=== PATIENT | female | born 1995 | race Caucasian/White ===

== ENCOUNTER 2017-12-30 08:45 | Inpatient (IN) ==
--- NOTE | 2017-12-30 11:24 | OB/GYN History & Physical ---
Date of Encounter: 12/30/17 Time of Encounter: 11:14 Assessment and Plan (1) 38 weeks gestation of Current visit: Yes Status: Acute Update: case discussed with both Dr Sanford and Dr Landry. Decision to proceed with IOL prior to midnight made. Admit for Continuous monitoring CBC Pain control If dilates past 6cm, will augment labor If does not dilate past 6cm prior to midnight and fetus remains reactive, will induce at midnight Anticipate vaginal delivery; discussed potential for emergency r/t history of partial abruption. POC per consult with Dr Sanford (2) Vaginal bleeding during Current visit: Yes Status: Acute (3) History of placental abruption Current visit: Yes Status: Acute History of Present Illness Chief complaint: Vaginal bleeding HPI: Ms. Rubin is a 22 year old at 38 weeks and 6 days gestation that arrives to labor and delivery triage with c/o maria d vaginal bleeding that began this AM and contractions. She sees Dr Sanford for her care. She denies any problems with this , but upon her review, she has had a resolved partial abruption in the second trimester. She states positive movement. She denies headache, vision changes, epigastric pain, and LOF. Labs: waiting to receive labs from Dr Sanford's office. Past Med Surg Social Fam HX - Past Medical History Medical history: no medical history Additional medical history: anxiety Psychiatric history: anxiety - Past Surgical History Surgical History: no surgical history - Social History Smoking Status: Current every day smoker Packs per day: less than 1 pack Smokeless Tobacco Status: No Alcohol use: none Drug use: none - Family History Mother Hx Family Cardiac Disorders: Yes Hx Family GI Disorders: Yes Obstetrical History - Pregnancies : 1 Para: 0 Term: 0 : 0 Ab's: 0 Livin Medications and Allergies Albuterol Sulfate [Albuterol Inhaler] 2 puff IH Q6HR PRN #1 hfa.aer.ad 01/26/15 [Rx] Azithromycin [Zithromax] 250 mg PO Q24H #5 tablet 01/26/15 [Rx] Permethrin Cream Rinse [Nix] 60 ml TP ONCE #2 liquid 10/01/16 [Rx] Doxylamine/Pyridoxine HCl [Evie Bowman 10-10 mg Tablet] 1 each PO DAILY [History] Ferrous Sulfate [Iron] 325 mg PO DAILY 12/30/17 [History] Tablet 80 mg DAILY 12/30/17 [History] 3 Allergy/AdvReac Type Severity Reaction Status Date / Time No Known Allergies Allergy Verified 01/26/15 20:30 Review of System OB All systems PM: reviewed and no additional remarkable complaints except as stated Exam - Constitutional Constitutional: well developed, well nourished, no acute distress, average body habitus - HEENT HEENT: Normocephaly, Mucus Membranes Moist - Neck Neck exam: full ROM - Lungs Respiratory exam: CTAB - Cardiovascular Cardiovascular exam: RRR, +S1, +S2 - Abdomen Abdomen: Present: bowel sounds normal, gravid, non tender - Extremities Extremities exam: calf tenderness, normal capillary refill, normal inspection, radial pulses palpable and symmetrical Deep Tendon Reflex Grade: 2+ Normal - Vulva Vulva: bilateral: normal - Vagina Vagina: Present: normal moisture - Cervix Dilation: 3 Effacement: 100 Station: 0 Results All other labs normal. - VTE Reasons for not Prescribing Prophylaxis: Treatment not Indicated - Low risk for VTE
[2017-12-30] MEDS ORDERED: *HR* Nalbuphine 10 MG/ML AMPUL IVP PRN (12:56)
[2017-12-30] MEDS ORDERED: Ondansetron 4 MG/2 ML VIAL IVP PRN (13:25)
[2017-12-30] MEDS ORDERED: Metoclopramide 10 MG/2 ML VIAL IVP PRN (13:25)
[2017-12-30] MEDS ORDERED: Naloxone 0.4 MG/ML INJ IVP PRN (13:25)
[2017-12-30] MEDS ORDERED: Famotidine 20 MG/2 ML VIAL IVP PRN (13:25)
[2017-12-30] MEDS ORDERED: Ringers Solution, Lactated 1,000 ML IVC SCH (13:30)
[2017-12-30] MEDS ORDERED: Oxytocin 20 units/ LR 1000 mL 20 UNIT/1,000 ML BAG IVC SCH ×2 (13:30→20:10)
[2017-12-30] MEDS ORDERED: Ringers Solution, Lactated 1,000 ML ONE (13:33)
[2017-12-30 14:27] LABS: Basophils # 0.1 K/mcL (0.0-0.2); Basophils % 0.4 %; Eosinophils # 0.1 K/mcL (0.0-0.6); Eosinophils % 0.7 %; Hematocrit 36.1 % (35.3-44.9); Hemoglobin 12.6 g/dL (11.5-15.4); Immature Granulocytes % 1.3 % (0-4); Lymphocytes # 1.8 K/mcL (0.6-4.6); Lymphocytes % 13.2 %; Mean Corpuscular HGB Conc 34.9 g/dL (31.6-35.5); Mean Corpuscular Hemoglobin 32.8 pg (28.0-33.3); Mean Platelet Volume 10.6 fL (9.4-12.4); Monocytes # 0.9 K/mcL (0.0-1.3); Monocytes % 6.2 %; Neutrophils # 10.8 K/mcL (1.6-8.9); Platelet Count 159 K/mcL (140-400); Red Blood Count 3.84 M/mcL (3.82-4.97); Red Cell Distribution Width 14.2 % (11.5-14.5); Segmented Neutrophils % 78.2 %
[2017-12-30] MEDS ORDERED: *HR* FentaNYL (PF) 100 MCG/2 ML VIAL EP ONE (14:31)
[2017-12-30] MEDS ORDERED: Bupivacaine-MPF 0.25% 10 ML VIAL EP ONE (14:31)
--- NOTE | 2017-12-30 14:34 | Anesthesia Evaluation PreOp ---
Date of Encounter: 12/30/17 Time of Encounter: 14:09 - Past History Planned Operation: labor epidural Cardiac History: Denies any Significant Hx Pulmonary History: Smoker (1/2 ppd. Denies asthma, lung disease.) WARP STARTER History: Denies Any Significant HX Other Medical History: Denies Any Significant HX Anesthesia History: No Prior Anesthetic Complications, Past Anesthesia (ORIF of leg fracture, wisdom teeth extracted. No problems with GA, no FHAP.) : Yes Alcohol Use: none Drug use: none Medications and Allergies Albuterol Sulfate [Albuterol Inhaler] 2 puff IH Q6HR PRN #1 hfa.aer.ad 01/26/15 [Rx] Azithromycin [Zithromax] 250 mg PO Q24H #5 tablet 01/26/15 [Rx] Permethrin Cream Rinse [Nix] 60 ml TP ONCE #2 liquid 10/01/16 [Rx] Doxylamine/Pyridoxine HCl [Diclegis Dr 10-10 mg Tablet] 1 each PO DAILY [History] Ferrous Sulfate [Iron] 325 mg PO DAILY 12/30/17 [History] Tablet 80 mg DAILY 12/30/17 [History] 3 Allergy/AdvReac Type Severity Reaction Status Date / Time No Known Allergies Allergy Verified 01/26/15 20:30 - Meds/Allergy Pre-op Review Medications Reviewed: Yes Allergies Reviewed: Yes Beta Blockers on Current Med List: No Anesthesia Results - Labs 12/30/17 10:46 Anesthesia Exam Height: 1.63m Weight: 67kg NPO (# of Hours): >8 Pain Scale: 6 Pain Scale Used: Numeric (1 - 10) - HEENT Pupil (Motor): Pupils equal, EOMI Mallampati: II Teeth: Normal Oral Opening: Greater than 3 - WARP STARTER LOC: Oriented WARP STARTER Motor: Normal RUE, Normal LUE, Normal RLE, Normal LLE, Normal Face WARP STARTER Sensory: Normal: RUE, LUE, RLE, LLE, Face - Cardiac Rhythm: Regular - Pulmonary Breath Sounds: bilateral Clear Respiratory Effort: Symmetrical Anesthesia Assess/Plan ASA Score: 2 Modified Marion Scale for Level of Consciousness: Cooperative, oriented, and tranquil Anesthetic Plan: Regional Monitoring Plan: Standard Monitors
[2017-12-30] MEDS ORDERED: Lidocaine -MPF 2% 5 ML VIAL ONE (14:37)
[2017-12-30] MEDS ORDERED: Epidural Premix (fent/bupiv) 110 ML EP ONE (14:39)
[2017-12-30] MEDS ORDERED: Epidural Premix (fent/bupiv) 110 ML EP SCH (14:45)
--- NOTE | 2017-12-30 15:06 | OB Labor Progress Note ---
Date of Encounter: 12/30/17 Time of Encounter: 15:04 Labor Progress Note - Subjective Subjective: 22 yo female 38.6 weeks presented to L&D in early labor. Now progressing on her own. Last SVE 7100/0. Getting epidural now. FHR 130s with accels. - Cervix Cervix: 100/0 - Heart Tones Heart Tones: 130s with accels - Plan Plan: expectant management.
--- NOTE | 2017-12-30 15:10 | Anesthesia Procedures ---
Date of Encounter: 12/30/17 Time of Encounter: 14:39 Procedures: Anesthesia - Epidural/Spinal Patient ID/Chart reviewed: Yes Patient examined: Yes OB Eval: Gestational age: 38 OB Eval: : 1 OB Eval: Hx Para: 0 OB Eval: Dilated at (cm): 7 OB Eval: Contractions: Non-stressed pattern Consent Obtained: Yes Supplemental Oxygen: None/Room Air Site Prep: Aseptic Technique, Sterile prep and drape, Povidone-Iodine 1% Patient position: upright Local Anesthetic: Lidocaine 1% Amount of Local Anesthetic used: 3 Touhy Needle Gauge: 18 Touhy Needle Depth (cm): 6 Catheter Depth at Skin (cm): 18 Test Dose (1.5% Lido + Epi): Volume given (mls): 3 Test Dose Result: Negative Loading Dose: 0.25% Marcaine (mls): 8 Loading Dose: Fentanyl (mcg): 100 Loading Dose Administered: Thru Catheter Infusion Med: 0.125% Bupivacaine w/ 2 mcg/ml Fentanyl Infusion Rate (mls/hr): [address]: Tegaderm, Tape Interspace Used: L3-L4 Loss of Resistance (CHENTE): Yes Blood: No CSF: No Paresthesia: No Vitals + FHT's: 3 Vital Signs Time 1439 1453 1455 1500 1505 BP 159/93 144/83 138/73 138/85 137/82 Pulse 110 98 77 84 89 FHTs 120 120 120 120 120
[2017-12-30] MEDS ORDERED: Ibuprofen 600 MG TABLET PO ONE (16:33)
--- NOTE | 2017-12-30 16:35 | OB/GYN Procedure Note ---
Delivery - Delivery Date: 12/30/17 Provider: Keith Sanford Intrapartum events: none, precipitous labor- <3hr Delivery induction: none Delivery monitor: external FHT, external uterine Anesthesia: epidural Quantitated Blood Loss: 300 - Infant (s) A Infant Delivery Date: 12/30/17 Delivery Time: 16:15 Presentation: vertex Position: OP Route of delivery: Gender: Female Viability: Viable Pounds: 7 Ounces: 2 Weight Gram: 3230 kg at 1 minute: 8 at 5 mins: 9 Shoulder Dystocia: not encountered Placenta: spontaneous Cord: nuchal cord, delivered through nuchal - Repair Episiotomy: none Laceration Description: Perineal - 1st Degree - Complications Delivery complications: none Delivery comments: Patient progressed rapidly to complete and pushing. She had a spontaneous vaginal delivery of a female infant over an intact perineum. 's head was in the perineum easily in the occiput posterior presentation. There was a cord around the neck 1 which was delivered through. cried immediately upon delivery. The was unwrapped and placed on mother's abdomen. Nursing attentive to at this point. Baby crying briskly. After 60 seconds cord was clamped and cut. Cord blood was obtained. Placenta was delivered spontaneously and intact. There are no cervical, vaginal, periurethral lacerations noted. There was a first-degree perineal laceration which 2 interrupted stitches were placed. Patient delivered a female weight 7 lbs. 2 oz. with Apgars 81 minute and 9 at 5 minutes estimated blood loss 300 mL. - Disposition Mom disposition: stable in LDR Staley disposition: stable in LDR
[2017-12-30] MEDS ORDERED: Ibuprofen 600 MG TABLET PO PRN (20:10)
[2017-12-30] MEDS ORDERED: Acetaminophen 325 MG TABLET PO PRN (20:10)
[2017-12-30] MEDS ORDERED: Measles/Mumps/Rubella Vacc 0.5 ML VIAL SQ PRN (20:10)
[2017-12-31 05:49] LABS: Basophils % 0.2 %; Eosinophils # 0.1 K/mcL (0.0-0.6); Eosinophils % 0.8 %; Hematocrit 34.3 % (35.3-44.9); Hemoglobin 11.7 g/dL (11.5-15.4); Lymphocytes # 2.6 K/mcL (0.6-4.6); Mean Corpuscular HGB Conc 34.1 g/dL (31.6-35.5); Mean Corpuscular Hemoglobin 32.4 pg (28.0-33.3); Mean Platelet Volume 10.5 fL (9.4-12.4); Monocytes # 1.3 K/mcL (0.0-1.3); Monocytes % 7.6 %; Neutrophils # 13.1 K/mcL (1.6-8.9); Platelet Count 159 K/mcL (140-400); Red Blood Count 3.61 M/mcL (3.82-4.97); Red Cell Distribution Width 14.1 % (11.5-14.5); Segmented Neutrophils % 75.4 %
[2017-12-31] MEDS ORDERED: Prenatal Vit/FA 1 EACH TABLET PO SCH (09:00)
[2017-12-31 09:19] VITALS: BP 114/76
--- NOTE | 2017-12-31 09:49 | OB/GYN Progress Note ---
Date of Encounter: 12/31/17 Time of Encounter: 09:47 Subjective - Subjective Principal diagnosis: s/p vaginal delivery Interval history: s/p uncomplicated . Mother and baby doing well. Wishes to go home. Patient reports: appetite normal, pain well controlled, ambulating normally : doing well Objective - Latest Vital Signs Latest vital signs: Vital Signs Temp Pulse Pulse Resp BP Pulse Ox 12/31/17 09:18 98.5 F 100 14 114/76 98 12/31/17 08:39 16 12/31/17 05:28 98.4 F 85 16 123/71 99 12/30/17 19:50 98.5 F 77 77 16 120/69 100 12/30/17 18:50 98.8 F 92 16 136/79 99 Intake and Output 12/30/17 12/31/17 12/31/17 23:59 07:59 15:59 Intake Total 810 / 810 750 / 750 Output Total 2350 / 2350 900 / 900 Balance -1540 / -1540 -150 / -150 Intake: Oral 410 / 410 750 / 750 Other 400 / 400 Output: Urine 2350 / 2350 900 / 900 Other: Meal Dinner Percent of Meal Consumed 50% Weight 65.045 kg Patient Weight 12/31/17 23:59 Weight 65.045 kg - Labs Labs: Laboratory Results - last 24 hr 12/30/17 12/31/17 10:46 05:23 WBC 13.8 H 17.3 H RBC 3.84 3.61 L Hgb 12.6 11.7 Hct 36.1 34.3 L MCV 94.0 95.0 MCH 32.8 32.4 MCHC 34.9 34.1 RDW 14.2 14.1 Plt Count 159 159 MPV 10.6 10.5 Immature Gran % 1.3 1.0 Seg Neutrophils % 78.2 75.4 Lymphocytes % 13.2 15.0 Monocytes % 6.2 7.6 Eosinophils % 0.7 0.8 Basophils % 0.4 0.2 Neutrophils # 10.8 H 13.1 H Lymphocytes # 1.8 2.6 Monocytes # 0.9 1.3 Eosinophils # 0.1 0.1 Basophils # 0.1 0.0
--- NOTE | 2017-12-31 09:51 | Discharge Summary ---
Date of Encounter: 12/31/17 Time of Encounter: 09:51 - Discharge Diagnosis (1) 38 weeks gestation of Priority: Secondary Status: Acute (2) History of placental abruption Priority: Secondary Status: Acute (3) (spontaneous vaginal delivery) Priority: Primary Status: Acute (4) Direct occiput posterior presentation of fetus Priority: Secondary Status: Acute Qualifiers: Fetus number: single or unspecified fetus Qualified Code(s): O64.0XX0 - Obstructed labor due to incomplete rotation of head, not applicable or unspecified - Discharge Medications Home Medications: Albuterol Sulfate [Albuterol Inhaler] 2 puff IH Q6HR PRN #1 hfa.aer.ad 01/26/15 [Rx] Azithromycin [Zithromax] 250 mg PO Q24H #5 tablet 01/26/15 [Rx] Permethrin Cream Rinse [Nix] 60 ml TP ONCE #2 liquid 10/01/16 [Rx] Doxylamine/Pyridoxine HCl [Diclegis Dr 10-10 mg Tablet] 1 each PO DAILY [History] Ferrous Sulfate [Iron] 325 mg PO DAILY 12/30/17 [History] Tablet 80 mg DAILY 12/30/17 [History] Allergies/Adverse Reactions: 3 Allergy/AdvReac Type Severity Reaction Status Date / Time No Known Allergies Allergy Verified 01/26/15 20:30 Data Procedures and tests throughout hospitalization: Laboratory Tests 12/30/17 12/31/17 10:46 05:23 WBC 13.8 H 17.3 H RBC 3.84 3.61 L Hgb 12.6 11.7 Hct 36.1 34.3 L MCV 94.0 95.0 MCH 32.8 32.4 MCHC 34.9 34.1 RDW 14.2 14.1 Plt Count 159 159 MPV 10.6 10.5 Immature Gran % 1.3 1.0 Seg Neutrophils % 78.2 75.4 Lymphocytes % 13.2 15.0 Monocytes % 6.2 7.6 Eosinophils % 0.7 0.8 Basophils % 0.4 0.2 Neutrophils # 10.8 H 13.1 H Lymphocytes # 1.8 2.6 Monocytes # 0.9 1.3 Eosinophils # 0.1 0.1 Basophils # 0.1 0.0 Labs on day of discharge: Labs from last 24 hours 12/31/17 12/30/17 05:23 10:46 WBC 17.3 H 13.8 H RBC 3.61 L 3.84 Hgb 11.7 12.6 Hct 34.3 L 36.1 MCV 95.0 94.0 MCH 32.4 32.8 MCHC 34.1 34.9 RDW 14.1 14.2 Plt Count 159 159 MPV 10.5 10.6 Immature Gran % 1.0 1.3 Seg Neutrophils % 75.4 78.2 Lymphocytes % 15.0 13.2 Monocytes % 7.6 6.2 Eosinophils % 0.8 0.7 Basophils % 0.2 0.4 Neutrophils # 13.1 H 10.8 H Lymphocytes # 2.6 1.8 Monocytes # 1.3 0.9 Eosinophils # 0.1 0.1 Basophils # 0.0 0.1 Date of admission: 12/30/17 13:25 Primary care physician: PCP NONE Consults: 12/30/17 20:10 Consult to Station Supervisor [CONS] Routine Comment: Vaginal delivery, consult needed Discharging clinician: Keith Sanford Anticipated date of discharge: 12/31/17 - Patient Status Disposition: Home, Self-Care Condition: Good Functional capacity at discharge: independent ambulation Overall status at discharge: patient is back to baseline - Discharge Instructions Follow Up With: NONE,PCP [Primary Care Provider] - - Diet and Activity Activity: resume usual activities as tolerated Diet: advance to your usual diet Hospital Course G[facility] Time Attestation: Total time spent providing and/or coordinating discharge services: Exam - Constitutional Vitals: Temp Pulse Resp BP Pulse Ox 98.5 F 100 14 114/76 98 12/31/17 09:18 12/31/17 09:18 12/31/17 09:18 12/31/17 09:18 12/31/17 09:18 General appearance IM: A&O X 3 - Respiratory Respiratory exam: Present: CTAB - Cardiovascular Cardiovascular exam IM: Present: RRR - GI/Abdominal GI/Abdominal exam IM: normal bowel sounds - Rectal Rectal exam: deferred - External exam: normal external exam Uterine Tone: Firm Uterus Position: 3 Fingers Below Umbilicus - Extremities Exam Extremities exam IM: Present: normal inspection - Neurological Exam Neurological exam: oriented X3, reflexes normal - VTE Reasons for not Prescribing Prophylaxis: Treatment not Indicated - Low risk for VTE
== END 2017-12-31 15:50 | disposition home or self-care (01) | DRG 774 ==
LOC: 1NENULAB → INTOOBSV 08:45 → OBSVTOIN 08:45 → 1NENULAB 09:53 → 1NENUOBS 19:35
PROVIDERS: ADMIT Obstetrics & Gynecology; ATTEND Obstetrics & Gynecology